=== PATIENT | female | born 1970 | race Caucasian/White ===

== ENCOUNTER 2025-10-03 01:57 | Day surgery (SDC) | payer OTHER, SELFPAY ==
[2025-09-27 14:33] VITALS: BMI 28.6
--- NOTE | 2025-09-27 14:44 | PC.NURSE ---
[facility] has started construction of its new state of the art ER which will open Spring 2026. With this, we anticipate parking may be a challenge for some our surgical patients and families. Parking spaces are limited but are available for all Surgical, obstetrics, and ER patients sharing this lot. If you arrive and find you are having a hard time finding a parking space, please note that we understand the challenges, please drive around the hospital and park near Hospital Entrance 1. When you enter this entrance, you can ask a volunteer to direct or take you back to the surgical waiting area to check in. We appreciate everyone?s understanding of these expected challenges while we build for your future. Report to the Outpatient Waiting Room, entrance under the green pavilion located off [address], at time 1000 on date 10/03/25. Planned Procedure Time: 1200.? Time changes happen often and if your time is changed the preop area will call you the afternoon before. - You and your visitor will be asked to self-screen and do not enter if you have any COVID symptoms. Please call surgeon if you need to reschedule. - A mask is optional within the hospital at this time. Patients may have clear liquids (water, carbonated beverages, clear teas, apple juice) until 3 hours prior to surgery with a maximum of 20 ounces. - No food from midnight until time of surgery and no smoking, or chewing tobacco (or any form of nicotine). No chewing gum, candy or mints. Take only the following medications with a SIP of water on the morning of surgery: N/A DO NOT STOP ANY OF YOUR OTHER PRESCRIPTION MEDICATIONS PRIOR TO SURGERY EXCEPT THE FOLLOWING Hold all vitamins and supplements for 3 days per anesthesiologist. Medications to discontinue per physician: Vitamins Date to take last dose: 09/30/2025 Please no make-up, nail gambian, hairspray, perfume, deodorant, or body powder the day of surgery.? No jewelry (including any body piercings) or valuables the day of surgery, leave them at home.? Please take a shower or bath the night before, or the morning of, surgery with an antibacterial soap.? Wear comfortable, loose fitting clothing.? - Jewelry must be removed prior to entering the operating room.? Rings and piercings that are not removed may be cut off. - The hospital will not accept responsibility for valuables.? - Please leave all valuables, including medications, at home the day of surgery. If you are going home after surgery, a licensed sales driver must drive you home.? - NO public transportation without another adult if you receive anesthesia. - We recommend that an adult stay with you for 24 hours following discharge. - We also recommend that you do not drive, make important decision, drink alcoholic beverages, or take any drugs that were not prescribed by your health care provider for at least 24 hours after your discharge time. Follow any additional instructions given to you from your surgeon. Telephone instructions given to patient and asked if any additional questions and then verbalized understanding. Patient advised to call surgeon office or pre surgery nurse liaison [phone] if any additional questions.
[2025-10-03] VITALS (12 sets, daily range): BP systolic 113–141; BP diastolic 47–92; PULSE 69–84; RESP 12–20; TEMP 36.1–36.8; O2SAT 92–100; BMI 28.8
--- OUTSIDE RECORDS SUMMARY | 2025-10-03 02:00 | XMS_ITS | Clinical Summary ---
Author Organization [facility] Address [address] [place] [id number] Care Team Providers Care Cotton Machine Operator Name Role Phone No, Physician Primary Care Provider Allergies No known active allergies Medications No known medications Active Problems No known active problems Family History Medical History Relation Name Comments Breast cancer Neg Hx Ovarian cancer Neg Hx Uterine cancer Neg Hx Social History Tobacco Use Types Packs/Day Years Used Date Smoking Tobacco: Never Assessed Comments No Sex and Gender Information Value Date Recorded Sex Assigned at Not on file 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 Gender Identity Not on file Sexual Orientation Not on file Obstetrics History Para Term AB IAB SAB Ectopic Multiple Livin g Live Births 2 2 2 2 2 Date Outcome GA Total Labor Labor/2nd/3rd Weight Sex Type Anes PTL Tara A1 A5 Name Clin 08/13 Term 3.643 kg (8 lb 0.5 oz) F Vaginal Living Complications:None 07/14 Term 4.366 kg (9 lb 10 oz) F Vaginal Living Complications:None Last Filed Vital Signs Vital Sign Reading Time Taken Comments Blood Pressure 112/70 05/18/2023 3:29 PM CDT Pulse - - Temperature - - Respiratory Rate - - Oxygen Saturation - - Inhaled Oxygen Concentration - - Weight 82.1 kg (181 lb) 05/18/2023 3:29 PM CDT Height 167.6 cm (5' 6) 05/18/2023 3:29 PM CDT Body Mass Index 29.21 05/18/2023 3:29 PM CDT Plan of Treatment Health Maintenance Due Date Last Done Comments Breast Cancer Screening-Mammogram 1969 Cervical Cancer Screening 1969 Colon Cancer Screening-Colonoscopy 1969 Depression Screening 1969 Hepatitis C Screening 1969 Hepatitis B Screening 1987 Regular Well Visit/Exam 18-64 1987 Zoster Vaccine (1 of 2) 2019 DTaP/Tdap/Td Vaccine (1 - Tdap) 07/13/2021 07/12/2021 Covid-19 Vaccine (5 - season) 2025 05/13/2022, 09/09/2021, 02/05/2021, Additional history exists Influenza Vaccine (#1) 2025 07/12/2021, 2018 Pneumococcal vaccine <65 Aged Out No longer eligible based on patient's age to complete this topic Insurance [facility] Address: [place] [address] [employer] Care Teams Cotton Machine Operator Relationship Specialty Start Date End Date No, Physician PCP - General 04/03/23
--- OUTSIDE RECORDS SUMMARY | 2025-10-03 02:00 | XMS_ITS | Clinical Summary ---
Author Organization [facility] Address [address] [place] [address] Care Team Providers Care Radio Interference Expert Name Role Phone Aliyah Padilla MD Primary Care Provider [phone] Source Comments [facility],non-owned Affiliates and Associated Physician Practices is amultiple site organization consisting of ambulatory clinics and hospital sitesin [place], [place], [place] and [place]. This disclosure is being madepursuant to the Care Everywhere program and may not contain all information available regarding this patient. Last updated 18.[facility] Implisit Active Problems Problem Noted Date Diagnosed Date Closed fracture of lower end of left radius with routine healing 01/03/2016 Social History Tobacco Use Types Packs/Day Years Used Date Smoking Tobacco: Never Alcohol Use Standard Drinks/Week Comments Yes 0 (1 standard drink = 0.6 oz pur e alcohol) Comments Unknown Sex and Gender Information Value Date Recorded Sex Assigned at Not on file Legal Sex Female 6:00 PM MIXER WHIPPED TOPPING Gender Identity Not on file Sexual Orientation Not on file Last Filed Vital Signs Vital Sign Reading Time Taken Comments Blood Pressure 114/83 11/17/2015 11:30 PM MIXER WHIPPED TOPPING Pulse 84 11/17/2015 11:32 PM MIXER WHIPPED TOPPING Temperature 36.9 C (98.5 F) 11/17/2015 7:18 PM MIXER WHIPPED TOPPING Respiratory Rate 13 11/17/2015 11:32 PM MIXER WHIPPED TOPPING Oxygen Saturation 97% 11/17/2015 11:32 PM MIXER WHIPPED TOPPING Inhaled Oxygen Concentration - - Weight 79.4 kg (175 lb) 02/14/2016 10:01 AM CDT Height 167.6 cm (5' 6) 02/14/2016 10:01 AM CDT Body Mass Index 28.25 02/14/2016 10:01 AM CDT Plan of Treatment Health Maintenance Due Date Last Done Comments NITIN (AGES 45-75) - COL ON CA SCREENING 1969 COLON MONITORING 1969 COLONOSCOPY - COLON CA SCREENING 1969 CT COLONOGRAPHY - COLON CA SCREENING 1969 Colorectal Cancer Screening 1969 FIT - COLON CA SCREENING 1969 FLEX SIG - COLON CA SCREENING 1969 LIPID TESTING 1969 MAMMOGRAM 1969 HIV SCREENING 1984 HEPATITIS C SCREENING 06/04/1987 DTAP/TDAP/TD VACCINES (1 - Tdap) 1988 HEPATITIS B VACCINE (1 of 3 - 19+ 3-dose series) 1988 PNEUMOCOCCAL VACCINE 50+ (1 of 1 - PCV) 2019 ZOSTER VACCINE (1 of 2) 2019 DEPRESSION SCREENING 10/19/2024 COVID-19 VACCINE (1 - 2024-2 6 season) 2025 INFLUENZA VACCINE (#1) 2025 HIB VACCINE Aged Out No longer eligi ble based on patient's age to complete this topic HPV VACCINE Aged Out No longer eligi ble based on patient's age to complete this topic MENINGOCOCCAL (Group B) VACC INE SHARED DECISION-MAKING Aged Out No longer eligibl e based on patient's age to complete this topic MENINGOCOCCAL GROUPS A/C/Y/W VACCINE Aged Out No longer eligible b ased on patient's age to complete this topic Care Teams Radio Interference Expert Relationship Specialty Start Date End Date Aliyah Padilla MD PCP - General 12/06/15
--- OUTSIDE RECORDS SUMMARY | 2025-10-03 02:00 | XMS_ITS | Clinical Summary ---
Author Organization [facility] Address [address] [place] [address] Care Team Providers Care Marketing Systems Manager Name Role Phone Aliyah Upton MD Primary Care Provider [phone] Allergies No known active allergies Encounters Date Type Department Care Team Description 08/07/2025 2:09 PM CDT - 08/07/2025 11:59 PM CDT Hospital Encounter [facility] Mammography [address] [place] [address] Aliyah Upton MD Discharge Disposition: Home or Self Care (Routine Discharge) 08/07/2025 Travel from Last 3 Months Social History Tobacco Use Types Packs/Day Years Used Date Smoking Tobacco: Never Assessed Comments Unknown Sex and Gender Information Value Date Recorded Sex Assigned at Female 08/07/2025 2:06 PM CDT Legal Sex Female 9:41 PM CDT Gender Identity Not on file Sexual Orientation Not on file Plan of Treatment Health Maintenance Due Date Last Done Comments Cervical Cancer Screening Pap Smear (Age 30 to 64) Every 3 Years 1969 Colorectal Cancer Screening Colonoscopy (10 Years) 1969 Annual Physical 1972 Hepatitis C 1987 DTaP, Tdap and Td Vaccines (1 - Tdap) 1988 Hepatitis B Vaccines (1 of 3 - 19+ 3-dose series) 1988 Cervical Cancer Screening Pap with HPV Testing (Age 30 to 64) Every 5 Years 1999 Cervical Cancer Screening with HPV 1999 Pneumococcal Vaccine: 50+ Years (1 of 1 - PCV) 2019 Zoster Vaccines (1 of 2) 2019 COVID-19 Vaccine ( season) 2025 02/05/2021, 01/14/2021 Influenza Adult (#1) 2025 Mammogram Screening 08/07/2027 08/07/2025, 07/28/2024, 05/19/2023, Additional history exists Hepatitis A Vaccines Aged Out No long er eligible based on patient's age to complete this topic Meningococcal B Vaccine Aged Out No l onger eligible based on patient's age to complete this topic Meningococcal Vaccine Aged Out No edwin osorio eligible based on patient's age to complete this topic RSV Immunizations Under 20 Months Aged Out No longer eligible based on patient's age to complete this topic Procedures Procedure Name Priority Date/Time Associated Diagnosis Comments MG SCREENING W JAMES MARK DIGI Routine 08/07/2025 2:33 PM CDT Encounter for screening mammogram for malignant neoplasm of breast from Last 3 Months Results * MG SCREENING W JAMES MARK DIGI (08/07/2025 2:33 PM CDT) Anatomical Region Laterality Modality Breast Bilateral Mammography 08/07/2025 3:07 PM CDT Impressions 08/07/2025 3:08 PM CDT IMPRESSION: No suspicious mammographic findings. Recommendation: 1. Routine Screening, Bilateral Assessment: ACR BI-RADS 2 - BENIGN FINDING(S) Ordered By: ALIYAH UPTON Interpreted By: Washington Valencia, 08/07/2025 3:07 PM Narrative 08/07/2025 3:08 PM CDT [facility] [address] [place] [address] Examination: Screening bilateral mammogram Exam Date/Time: 08/07/2025 2:24 PM Clinical history: Prior benign left biopsy at age 21. No current complaints. Comparison: 07/28/2024 Technique: Digital screening mammography of both breasts was performed. Breast tomosynthesis acquisitions were obtained and reviewed. This study was read with the assistance of a computer-aided detection system. Tissue density: There are scattered areas of fibroglandular density. Findings: No suspicious masses, malignant appearing calcifications, skin thickening or other abnormalities are present. No significant change from the prior exam. Aliyah Upton MD MAMMO Final Result from Last 3 Months Insurance [facility] Care Teams Marketing Systems Manager Relationship Specialty Start Date End Date Aliyah Upton MD PCP - General 05/04/16
[2025-10-03] MEDS: LACTATED RINGERS 1,000 ML 30 ML IV CONT ×2 (10:45→15:52)
[2025-10-03] MEDS: TRANEXAMIC ACID 1,000MG/ISO100 1,000 MG/100 ML BAG 200 MG IVPB (12:00)
--- NOTE | 2025-10-03 12:08 | WPDANESEPPF ---
Anes - Initial Pre Proc Eval Procedure: Operation Date: 10/03/25 12:00 Proposed Procedures p Bilateral Breast Reduction - Nicola Dhaliwal MD Date/Time: 10/03/25 12:08 Surgeon: Nicola Dhaliwal MD Pre Op Diagnosis: Macromastia Patient Data Age: 55 Gender: F Height: 1.68 m Weight: 80.45 kg Allergies Allergy/AdvReac Type Severity Reaction Status Date / Time No Known Allergies Allergy Verified 09/27/25 14:31 Home Medications ?Medication ?Instructions ?Recorded ?Confirmed ?Type multivitamin 1 tablet PO DAILY 09/27/25 09/27/25 History Laboratory Tests 10/03/25 10:18 Cotinine Negative Patient hx anesthesia problems: none Family hx anesthesia problems: none Results Review: All pre-operative results and documents have been reviewed as part of the pre-operative evaluation. [facility] Past Medical History Medical History (Updated 10/03/25 @ 12:08 by Jaren Cruz MD) Overweight Social History Social History Years smoked: 18 Smoking status: Former smoker Tobacco type: cigarettes Alcohol intake: current Drinks per week: 5 Substance use: current Substance use type: marijuana Other substance usage details: edibles and smoking marijuana Last use: 09/23/2025 Living arrangements: with family Spiritual care concerns: No Anes - Eval Final PreProcedure Day of Procedure 10/03/25 12:08 Patient weight: overweight Heart: regular rate and rhythm Lungs: clear to auscultation Airway: Mallampati scale class II Neurological: alert and oriented Last oral intake: >/= 8 hours ASA classification: II Emergent: no Anesthetic plan: proceed Anesthesia type and monitoring: general ETT and standard monitoring Results Review: All pre-operative results and documents have been reviewed as part of the pre-operative evaluation. Informed Consent: The patient's anesthetic plan and its attendant risks and benefits were discussed with the patient/family/POA. Questions were solicited and answers provided to the satisfaction of the patient/family/POA.
[2025-10-03] MEDS: SCOPOLAMINE 1 MG PATCH 1 PATCH TRANSDERM (12:29)
--- NOTE | 2025-10-03 13:01 | P.OP_ITS ---
Procedure Note - Detailed Date of Procedure 10/03/25 Pre-op Diagnosis Macromastia Post-op Diagnosis Same Procedure Performed Bilateral reduction mammaplasty Surgeon Nicola Dhaliwal MD Anesthesia General Findings Inverted T Superior medial pedicle Tissue removed: Right: 526 grams Left: 519 grams Tumescent: 800 cc Vaser 60% 1m 58s Lipoaspirate: 350 cc Description of Procedure She is here today for bilateral breast reduction. Previously and again today the risks, benefits, alternatives were discussed in extensive detail. I wanted her to be very realistic about the risks involved as well as expectations. We discussed aftercare and what to monitor for. She understands we can never guarantee final breast size and there will always be asymmetry. I was very upfront and honest about the risks of sensation change and even nipple loss (). Made sure answered all of her questions to her satisfaction today and consent was obtained. She was marked in the preoperative holding area with their verification. The patient was taken to the operating room placed supine on the operating table. Anesthesia was provided by anesthesiology. She was prepped and draped in a standard sterile fashion. A surgical time-out was taken. Stab incisions were made and I tumesced with a tumescent solution. Protective port sites were placed and wet laps used to protect the skin. Once adequate time was allowed for hemostasis Vaser was utilized in a fanning manner to protect from thermal injury. A 4mm geovanny cannula were utilized to complete suction lipectomy in multiple planes and passes. Suction lipectomy continued to result based on pre-operative planning, intra-operative observation, and rolling pinch test which were in full agreement. I marked out the nipple-areolar complex at 42 mm. I then de-epithelialized the pedicle. The pedicle was well left well more than 2 cm in thickness. I then removed the inferior portion of the breast as well as the central keel to get shape based on preoperative planning. At this point copiously irrigated with saline solution and verified a strict hemostasis. I reapproximated the pillars using a 2-0 PDS. I tailor tacked the breast into place with annette. She was placed in a sitting position. I verified the nipple-areolar complex position based on preoperative markings, intraoperative measurements, and observation which were in full agreement. This nipple-areolar complex was marked at 42 mm in size. I then placed supine and de-epithelialized this. Nipple-areolar complex was inset with 3-0 Monocryl. I closed IMF deep with 1 strattafix. I closed the vertical incision with 3-0 Monocryl in the IMF with 3- 0 stratafix. Then everything was closed using a running subcuticular 4-0 Monocryl and tissue glue. A dressing was placed followed by surgical bra. Patient was awoke and taken to PACU without difficulty. All instrument sponge counts were correct at the end of the case. Estimated Blood Loss 50 Drains No Packing No Pathology None sent Complications No immediate complications Condition Stable Disposition PACU
--- NOTE | 2025-10-03 13:01 | WPDHPUPDATE1 ---
History and Physical Update Update Date/Time: 10/03/25 13:01 History and Physical has been reviewed, including an updated exam of the patient. There are NO changes in the patient's condition. Risks, benefits, and alternatives have been discussed and questions answered. Patient agrees to proceed with procedure.
[2025-10-03] MEDS: ceFAZolin 2 GM in SODIUM CHLORIDE 0.9% IV 50 ML 100 ML IVPB (13:24)
[2025-10-03] MEDS: LACTATED RINGERS IRRIG 1,000 ML, LIDOCAINE 1% LOCAL INJ 50 ML, EPINEPHrine HCL INJ 1 MG... INFILTRATE (13:24)
--- NOTE | 2025-10-03 14:15 | S_PTH ---
PATIENT: Christina Khan LOC: [facility] U#:[id number] AGE/SX: 55/F ROOM: RE10/03/[address]: Nicola Dhaliwal MD : 1970 BED: DIS: 10/03/2025 SPEC #: [id number] RECD: 10/04/25 07:48 STATUS: SOUMYA REIda #: [id number] SYDNEE: 10/03/25 14:[address]: Nicola Dhaliwal DEPT: [facility] Surgical RECD BY: Ami Greenwood ENTERED: 10/04/25 07:49 SP TYPE: Surgical OTHR DR: Aliyah Padilla, Tissues: A - Breast Reduction B - Breast Reduction Procedures: Hematoxylin and Eosin Stain Gross and Microscopic Level 4
[2025-10-03] MEDS: ONDANSETRON INJ 4 MG/2 ML VIAL IV PUSH (16:09)
[2025-10-03] MEDS: fentaNYL CITRATE INJ (*CRX) 100 MCG/2 ML VIAL 25 MCG IV PUSH ×4 (16:18→17:06)
[2025-10-03] MEDS: oxyCODONE HCL (*CRX) 5 MG TAB IR PO (17:35)
== END 2025-10-03 18:17 | disposition home or self-care (01) ==
PROVIDERS: PCP Family Medicine; Visit Provider Surgery Plastic and Reconstructive Surgery
PROC: 0HBV0ZZ Excision of Bilateral Breast, Open Approach (ICD-10-PCS; CPT 19318; principal; 2025-10-03 12:00)
DX: N62 Hypertrophy of breast (principal); N60.12 Diffuse cystic mastopathy of left breast; N60.11 Diffuse cystic mastopathy of right breast; F12.90 Cannabis use, unspecified, uncomplicated; Z87.891 Personal history of nicotine dependence
CPT/HCPCS: 19318; 80307; 88305; J0690; A9270; J0166; J1100; J1171; J1200; J2003; J2250; J2405; J2704; J3010; J3290; J7120